=== PATIENT | male | born 1975 | race Caucasian/White ===

== ENCOUNTER 2018-10-04 22:38 | Inpatient (IN) | payer MEDICAID, OTHER ==
[~2018-10-04] VITALS: Ht 180.3 cm; Wt 59.1 kg
[~2018-10-04 22:38] MED LIST: INSLAN SQ; INSNOV SQ
[2018-10-04] MEDS ORDERED: AMOX1TAB16 PO (22:50)
[2018-10-04] MEDS ORDERED: TAMS-1 PO (22:50)
[2018-10-04] MEDS ORDERED: RAME8TAB8 PO (22:50)
[2018-10-04] MEDS ORDERED: GABA-531 PO (22:50)
[2018-10-04] MEDS ORDERED: FOLI1TAB15 PO (22:50)
[2018-10-04 23:06] LABS: GLUCOSE,POINT OF CARE 506 MG/DL (70-110)
[2018-10-04 23:21] LABS: BASOPHILS % (AUTO) 0.7 % (0.0-2.0); EOSINOPHILS % (AUTO) 0 % (1.0-6.0); HEMATOCRIT 37.1 % (41-53); HEMOGLOBIN 11.8 g/dL (13.5-17.5); LYMPHOCYTES # (AUTO) 1.2 K/uL (1.0-4.8); MEAN CORPUSCULAR HEMOGLOBIN 26.5 pg (26.0-34.0); MEAN CORPUSCULAR HGB CONC 31.8 G/dL (31.0-37.0); MEAN CORPUSCULAR VOLUME 83 fL (80-100); MONOCYTES # (AUTO) 0.4 K/uL (0.1-1.0); MONOCYTES % (AUTO) 5.2 % (2.0-9.0); NEUTROPHILS # (AUTO) 6.2 K/uL (1.8-7.7); NEUTROPHILS % (AUTO) 79.1 % (40.0-70.0); PLATELET COUNT (AUTO) 289 K/uL (150-450); RED BLOOD CELL COUNT(AUTO) 4.45 MIL/uL (4.50-5.90); RED CELL DISTRIBUTION WIDTH 18.3 % (11.5-14.5)
[2018-10-04] MEDS ORDERED: ONDANSETRON HCL 4 MG/2 ML VIAL IVP ONE (23:45)
[2018-10-04] MEDS ORDERED: MORPHINE SULFATE 4 MG/ML SYRINGE IVP ONE (23:45)
[2018-10-04] MEDS ORDERED: SODIUM CHLORIDE 0.9% 1,000 ML IV ONE (23:45)
[2018-10-04 23:47] LABS: ALANINE AMINOTRANSFERASE 16 U/L (12-78); ALBUMIN 2.4 g/dL (3.4-5.0); ALKALINE PHOSPHATASE 183 U/L (46-116); ANION GAP 12 mmol/L (8-16); ASPARTATE AMINOTRANSFERASE 18 U/L (15-37); BILIRUBIN,TOTAL 0.8 mg/dL (0.1-1.0); CALCIUM, TOTAL 8.4 mg/dL (8.8-10.5); CARBON DIOXIDE 23 mmol/L (22-29); CHLORIDE 82 mmol/L (98-107); CREATININE 0.82 mg/dL (0.60-1.30); GLOMERULAR FILTR. RATE CALC > 60 mL/min (>60); HCG,QUANTITATIVE < 1 mIU/mL (0-6); POTASSIUM 3.6 mmol/L (3.5-5.1); UREA NITROGEN, BLOOD 9 mg/dL (7-18)
[2018-10-04 23:54] LABS: GLUCOSE,RANDOM 508 mg/dL (70-110); SODIUM SERUM 117 mmol/L (136-145)
[2018-10-05 00:07] LABS: LIPASE 27 U/L (73-393)
[2018-10-05] MEDS ORDERED: INSULIN REGULAR, HUMAN 100 UNITS/ML IVP ONE (00:15)
[2018-10-05] MEDS ORDERED: CLINDAMYCIN 900 MG/D5% WATER 50 ML IV ONE (01:45)
[2018-10-05 02:31] LABS: ANION GAP 11 mmol/L (8-16); CALCIUM, TOTAL 7.4 mg/dL (8.8-10.5); CARBON DIOXIDE 21 mmol/L (22-29); CHLORIDE 90 mmol/L (98-107); CREATININE 0.69 mg/dL (0.60-1.30); GLOMERULAR FILTR. RATE CALC > 60 mL/min (>60); GLUCOSE,RANDOM 352 mg/dL (70-110); POTASSIUM 4.1 mmol/L (3.5-5.1); UREA NITROGEN, BLOOD 8 mg/dL (7-18)
[2018-10-05 02:42] LABS: SODIUM SERUM 122 mmol/L (136-145)
[2018-10-05 03:00] LABS: GLUCOSE,POINT OF CARE 326 MG/DL (70-110)
[2018-10-05] MEDS ORDERED: SODIUM CHLORIDE 0.9% 1,000 ML IV ONE (03:00)
[2018-10-05] MEDS ORDERED: ONDANSETRON HCL 4 MG/2 ML VIAL IVP PRN ×2 (03:15→10:15)
[2018-10-05] MEDS ORDERED: ACETAMINOPHEN 325 MG TABLET PO PRN (03:15)
[2018-10-05] MEDS ORDERED: 0.9% SODIUM CHLORIDE 10 ML SYRINGE IVP PRN ×2 (03:15→10:15)
[2018-10-05] MEDS: ENOXAPARIN SODIUM 40 MG/0.4 ML PF SYRINGE SQ SCH (10:15)
[2018-10-05] MEDS ORDERED: INSULIN LISPRO 100 UNITS/ML SQ PRN (10:15)
[2018-10-05] MEDS ORDERED: INSULIN GLARGINE,HUM.REC.ANLOG 100 UNITS/ML SQ SCH (10:15)
[2018-10-05] MEDS ORDERED: GLUCAGON,HUMAN RECOMBINANT 1 MG VIAL IM PRN (10:15)
[2018-10-05] MEDS: PANTOPRAZOLE SODIUM 40 MG/VIAL IVP SCH (10:43)
[2018-10-05 10:54] LABS: GLUCOSE,POINT OF CARE 448 MG/DL (70-110)
[2018-10-05 12:04] LABS: GLUCOSE,POINT OF CARE 470 MG/DL (70-110)
[2018-10-05] MEDS: MORPHINE SULFATE 2 MG/ML SYRINGE IVP PRN ×3 (12:19→18:46)
[2018-10-05 13:49] LABS: GLUCOSE,POINT OF CARE 570 MG/DL (70-110)
[2018-10-05] MEDS ORDERED: DEXTROSE 50%-WATER 25 GM/50 ML SYRINGE IVP PRN (14:15)
[2018-10-05 15:09] LABS: GLUCOSE,POINT OF CARE 375 MG/DL (70-110)
[2018-10-05] MEDS: GABAPENTIN 300 MG CAPSULE PO SCH ×3 (16:00→22:21)
[2018-10-05 17:34] LABS: GLUCOSE,POINT OF CARE 261 MG/DL (70-110)
[2018-10-05] MEDS: INSULIN LISPRO 100 UNITS/ML SQ PRN (17:46)
[2018-10-05] MEDS: INSULIN GLARGINE,HUM.REC.ANLOG 100 UNITS/ML SQ SCH (20:59)
[2018-10-05] MEDS: ZOLPIDEM TARTRATE 5 MG TABLET PO PRN (21:08)
[2018-10-05 21:44] LABS: GLUCOSE,POINT OF CARE 340 MG/DL (70-110)
[2018-10-05 22:30] VITALS: BP 129/81
[2018-10-06] MEDS: MORPHINE SULFATE 2 MG/ML SYRINGE IVP PRN ×5 (00:12→20:52)
[2018-10-06 04:00] VITALS: BP 125/85
[2018-10-06] MEDS: INSULIN LISPRO 100 UNITS/ML SQ PRN ×4 (04:40→21:45)
[2018-10-06 05:52] LABS: BASOPHILS % (AUTO) 0.5 % (0.0-2.0); EOSINOPHILS % (AUTO) 0.3 % (1.0-6.0); HEMATOCRIT 37.5 % (41-53); HEMOGLOBIN 11.9 g/dL (13.5-17.5); LYMPHOCYTES # (AUTO) 2.2 K/uL (1.0-4.8); LYMPHOCYTES % (AUTO) 34.2 % (22.0-44.0); MEAN CORPUSCULAR HEMOGLOBIN 26.8 pg (26.0-34.0); MEAN CORPUSCULAR HGB CONC 31.8 G/dL (31.0-37.0); MEAN CORPUSCULAR VOLUME 84 fL (80-100); MONOCYTES # (AUTO) 0.7 K/uL (0.1-1.0); MONOCYTES % (AUTO) 10.2 % (2.0-9.0); NEUTROPHILS # (AUTO) 3.6 K/uL (1.8-7.7); NEUTROPHILS % (AUTO) 54.8 % (40.0-70.0); PLATELET COUNT (AUTO) 305 K/uL (150-450); RED BLOOD CELL COUNT(AUTO) 4.45 MIL/uL (4.50-5.90); RED CELL DISTRIBUTION WIDTH 18.1 % (11.5-14.5)
[2018-10-06 06:10] LABS: ANION GAP 8 mmol/L (8-16); CALCIUM, TOTAL 8.5 mg/dL (8.8-10.5); CARBON DIOXIDE 30 mmol/L (22-29); CHLORIDE 96 mmol/L (98-107); CREATININE 0.64 mg/dL (0.60-1.30); GLOMERULAR FILTR. RATE CALC > 60 mL/min (>60); GLUCOSE,RANDOM 147 mg/dL (70-110); SODIUM SERUM 134 mmol/L (136-145); UREA NITROGEN, BLOOD 10 mg/dL (7-18)
[2018-10-06] MEDS ORDERED: PNEUMOCOCCAL VACCINE POLYVALENT 0.5 ML VIAL [PPSV23] IM ONE (06:45)
[2018-10-06 07:04] VITALS: BP 104/75
[2018-10-06] MEDS: PANTOPRAZOLE SODIUM 40 MG/VIAL IVP SCH (07:50)
[2018-10-06] MEDS: ENOXAPARIN SODIUM 40 MG/0.4 ML PF SYRINGE SQ SCH ×2 (07:50→07:56)
[2018-10-06] MEDS: INSULIN GLARGINE,HUM.REC.ANLOG 100 UNITS/ML SQ SCH ×2 (07:51→21:50)
[2018-10-06] MEDS: GABAPENTIN 300 MG CAPSULE PO SCH ×3 (07:51→20:51)
[2018-10-06] MEDS: TAMSULOSIN HCL 0.4 MG CAPSULE PO SCH (07:51)
[2018-10-06 08:39] LABS: GLUCOMETER DEV NAME(LOC) 6N.2; GLUCOSE,POINT OF CARE 163 MG/DL (70-110)
[2018-10-06] MEDS ORDERED: OxyCODONE HCL 5 MG IR TABLET PO PRN (11:15)
[2018-10-06 11:22] VITALS: BP 128/79
[2018-10-06] MEDS ORDERED: MAGNESIUM SULFATE 2 GM/WATER 50 ML IV PRN (11:30)
[2018-10-06] MEDS ORDERED: MAGNESIUM SULFATE 4 GM/WATER 100 ML IV PRN (11:30)
[2018-10-06] MEDS: CLINDAMYCIN HCL 300 MG CAPSULE PO SCH ×2 (11:45→16:24)
[2018-10-06] MEDS: MAGNESIUM OXIDE 400 MG TABLET PO PRN ×2 (11:45→16:23)
[2018-10-06 12:06] LABS: ALBUMIN 2.1 g/dL (3.4-5.0)
[2018-10-06 12:09] LABS: GLUCOMETER DEV NAME(LOC) 4E.; GLUCOSE,POINT OF CARE 201 MG/DL (70-110)
[2018-10-06 15:25] VITALS: BP 129/75
[2018-10-06 20:01] VITALS: BP 117/72
[2018-10-06] MEDS: ZOLPIDEM TARTRATE 5 MG TABLET PO PRN (21:53)
[2018-10-06 22:44] LABS: GLUCOMETER DEV NAME(LOC) 4E.; GLUCOSE,POINT OF CARE 410 MG/DL (70-110)
[2018-10-07 00:02] VITALS: BP 115/68
[2018-10-07] MEDS: CLINDAMYCIN HCL 300 MG CAPSULE PO SCH ×2 (00:05→09:37)
[2018-10-07 00:10] LABS: GLUCOMETER DEV NAME(LOC) 6N.2; GLUCOSE,POINT OF CARE 372 MG/DL (70-110)
[2018-10-07 00:19] LABS: GLUCOMETER DEV NAME(LOC) 4E.; GLUCOSE,POINT OF CARE 210 MG/DL (70-110)
[2018-10-07] MEDS: MORPHINE SULFATE 2 MG/ML SYRINGE IVP PRN ×3 (03:00→11:05)
[2018-10-07 04:45] VITALS: BP 119/65
[2018-10-07 06:24] LABS: GLUCOMETER DEV NAME(LOC) 4E.; GLUCOSE,POINT OF CARE 222 MG/DL (70-110)
[2018-10-07] MEDS: INSULIN LISPRO 100 UNITS/ML SQ PRN ×2 (06:46→11:35)
[2018-10-07 07:15] VITALS: BP 111/62
[2018-10-07] MEDS ORDERED: MULTIVITAMINS WITH MINERALS, THERAPEUTIC TABLET PO SCH (09:00)
[2018-10-07] MEDS: ENOXAPARIN SODIUM 40 MG/0.4 ML PF SYRINGE SQ SCH (09:00)
[2018-10-07] MEDS: PANTOPRAZOLE SODIUM 40 MG/VIAL IVP SCH (09:19)
[2018-10-07] MEDS: TAMSULOSIN HCL 0.4 MG CAPSULE PO SCH (09:20)
[2018-10-07] MEDS: GABAPENTIN 300 MG CAPSULE PO SCH (09:20)
[2018-10-07] MEDS: INSULIN GLARGINE,HUM.REC.ANLOG 100 UNITS/ML SQ SCH (09:41)
[2018-10-07 11:19] VITALS: BP 127/79
[2018-10-07 12:10] LABS: GLUCOMETER DEV NAME(LOC) 4E.; GLUCOSE,POINT OF CARE 304 MG/DL (70-110)
[2018-10-07] MEDS ORDERED: INSULIN LANTUS SQ (12:55)
[2018-10-07] MEDS ORDERED: CLINDAMYCIN PO (12:55)
== END 2018-10-07 15:15 | disposition home or self-care (01) | DRG 197 ==
LOC: EMS 22:41 → 4E 10-05 21:00
PROVIDERS: ADMIT Internal Medicine; ATTEND Internal Medicine
DX: E11.51 Type 2 diabetes mellitus with diabetic peripheral angiopathy without gangrene (principal); E11.621 Type 2 diabetes mellitus with foot ulcer; E43 Unspecified severe protein-calorie malnutrition; E11.40 Type 2 diabetes mellitus with diabetic neuropathy, unspecified; R64 Cachexia; L03.116 Cellulitis of left lower limb; E87.1 Hypo-osmolality and hyponatremia; L97.529 Non-pressure chronic ulcer of other part of left foot with unspecified severity; E11.8 Type 2 diabetes mellitus with unspecified complications; Z68.1 Body mass index [BMI] 19.9 or less, adult; I73.9 Peripheral vascular disease, unspecified; E11.65 Type 2 diabetes mellitus with hyperglycemia; F15.90 Other stimulant use, unspecified, uncomplicated; Z79.4 Long term (current) use of insulin; Z91.19 Patient's noncompliance with other medical treatment and regimen
CPT/HCPCS: 82948; 83735; 87040; 93971; 96372; 96374; 96375; 96376; C9113; J1650; J1815; J2270; J2405; J3490; J7030